=== PATIENT | male | born 1970 | race Caucasian/White ===

== ENCOUNTER 2017-03-18 15:17 | Observation (INO) | payer OTHER ==
[~2017-03-18] VITALS: Ht 182.9 cm; Wt 89.6 kg
[2017-03-18] VITALS (7 sets, daily range): BP systolic 125–155; BP diastolic 74–86
--- NOTE | ~2017-03-18 | EKG ---
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: MZOOK : 1970 Requested By: Stephanie Rios Order Number: [id number] MD: Jay Dowling Measurements Intervals [place] Rate: 75 P: 54 ME: 141 QRS: 29 QRSD: 92 T: 50 QT: 384 QTc: 429 Interpretive Statements Sinus rhythm Low voltage, precordial leads Abnormal R-wave progression, early transition Compared to ECG 11/02/2015 23:12:06 No significant change was found Electronically Signed On 03-19-2017 9:24:35 CDT by Jay Dowling [email or web address] <ELECTRONICALLY SIGNED> By: Jay Dowling MD, [facility] 03/19/17 0924 1551 1551 Jay Dowling MD, [facility] /EPI
--- NOTE | ~2017-03-18 | EXE ---
[facility] [employer] [place] [address] STRESS ECHOCARDIOGRAM Name: BUBBA ABURTO Room #: 206-P ADM IN M.R.#: [id number] Admission: 03/18/17 Attend Phys: Charleen Armstrong Discharge: Date of : 66 Date of Service: 03/19/17 0933 Report #: [id number] THIS REPORT FOR: //name// APPROVED REPORT Exam: Stress Echocardiogram Indication: Chest pain Patient Location: In-Patient Stress Nurse: Earnestine Yeager RN Room #: 206 Supervising Physician: Dr. Dowling Status: routine HR: 70 bpm Medical History Medical History: CABG, HLP Allergies: No known drug allergies Procedure The patient underwent an Exercise Stress Test using the Damion Protocol. Blood pressure, heart rate, and EKG were monitored. An Echocardiogram was performed by lawn care technician in four stages in quad fashion. At peak stress, four selected images were obtained and placed side by side with resting images for comparison. Stress Test Details Stress Test: Exercise stress testing was performed using a Damion protocol. HR Resting HR: 70 bpm Max Heart Rate (APMHR): 172 bpm Max HR Achieved: 144 bpm Target HR (85% APMHR): 146 bpm % of APMHR: 83 Recovery HR: 93 bpm HR response to stress: Normal HR response to stress BP Resting BP: 114/77 mmHg Max BP: 200/82 mmHg Recovery BP: 150/70 mmHg ECG Resting ECG: Sinus Rhythm Stress ECG: Sinus Rhythm ST Change: Normal [facility] [address] [place] [address] STRESS ECHOCARDIOGRAM Name: BUBBA ABURTO Room #: 206-P [facility] IN .R.#: [id number] Admission: 03/18/17 Attend Phys: Charleen Armstrong Discharge: Date of : 66 Date of Service: 03/19/17 0933 Report #: [id number] Maximum ST Deviation: 0 mm Arrhythmia: None Recovery ECG: Sinus Rhythm Recovery ST Change: Normal Recovery ST Deviation: 0 mm Recovery Arrhythmia: None Clinical Reason for Termination: Moderate fatigue, hip pain, dyspnea Exercise duration: 10 min 34 sec Exercise capacity: 13.40 METs Angina Score: None No complications. Stress ECG Conclusion Clinical: Non-ischemic ECG: Non-ischemic Nino Treadmill Score is 10.0 which is Low risk. Pre-Stress Echo The resting Echocardiogram showed abnormal left ventricular contractility with an estimated Ejection Fraction of about 50-55%. The resting Echocardiogram demonstrated wall motion abnormality in the basal inferior and inferoapical flores. Trace MR, mild TR. Post-Stress Echo The stress Echocardiogram showed abnormal left ventricular contractility with an estimated Ejection Fraction of about 65-70%. No new regional wall motion abnormalities Conclusion Clinical Response: Non-ischemic Exercise Capacity: Average Stress ECG Response: Non-ischemic Stress Echo Images: Non-ischemic Normal stress echocardiogram with maximal exercise stress. Resting EF 55%. Basal inferior and inferoapical hypokinesis Other Information Study Quality: Adequate/lung artifact <Conclusion> [facility] [address] [place] [address] STRESS ECHOCARDIOGRAM Name: BUBBA ABURTO GUIDO Room #: 206-P ADM IN M.R.#: [id number] Admission: 03/18/17 Attend Phys: Charleen Armstrong Discharge: Date of : 66 Date of Service: 03/19/17932 Report #: [id number] Normal stress echocardiogram with maximal exercise stress. Resting EF 55%. Basal inferior and inferoapical hypokinesis <ELECTRONICALLY SIGNED> By: Jay Dowling MD, FACC 03/19/17932 2 2 Jay Dowling MD, FACC /INF
--- NOTE | ~2017-03-18 | EKG ---
[address] [place] [address] ELECTROCARDIOGRAM REPORT Name: BUBBA ABURTO Room #: 206-P ADM IN M.R.#: [id number] Admission: 03/18/17 Attend Phys: Charleen Gregory Discharge: Date of : 66 Report #: [id number] THIS REPORT FOR: //name// [facility] Test Date: 2017-03-18 Test Time: 20:31:45 Pat Name: BUBBA ABURTO Department: Room: 206 P Gender: M Costumed Character: Klarissa WHEELER : 1970 Requested By: Brianda Bowling Order Number: [id number] MD: Jay Dowling Measurements Intervals [place] Rate: 65 P: 54 [place]: 154 QRS: 50 QRSD: 93 T: 59 QT: 379 QTc: 394 Interpretive Statements Sinus rhythm Baseline wander in lead(s) II Compared to ECG 11/02/2015 23:12:06 No significant changes Electronically Signed On 03-19-2017 9:26:04 CDT by Jay Dowling [email or web address] <ELECTRONICALLY SIGNED> By: Jay Dowling MD, [facility] 03/19/17 0926 30 30 Jay Dowling MD, [facility] /EPI
--- NOTE | ~2017-03-18 | HC ---
[facility] [address] [place] [address] [place] [address] CONSULTATION Name: BUBBA ABURTO Room #: 206-P ADM IN M.R.#: [id number] Admission: 03/18/17 Attend Phys: Charleen Gregory Discharge: Date of : 66 Report #: [id number] THIS REPORT FOR: //name// CC: VIN physician/PCP Charleen Gregory REASON FOR CONSULTATION: Chest pain. HISTORY OF PRESENT ILLNESS: The patient is a 46-year-old gentleman with HIV, dyslipidemia and coronary artery disease. He underwent multivessel bypass surgery in 2014 with a left internal mammary to the LAD, vein graft to the diagonal, ramus, marginal and posterolateral branches, and a separate vein graft to the acute marginal and posterior descending. The patient had been doing well, exercising, walking 5 miles a day without limitation. He was driving on his way to the oral surgeon yesterday when he developed midsternal chest tightness. This had a pulsating characteristic to it. There was no positional and pleuritic component. He called 911 and was brought to the emergency department where he was given aspirin, nitroglycerin, fentanyl without significant improvement in his discomfort. His EKG demonstrated no acute ST or T-wave changes. He was subsequently given enoxaparin, hydrocodone, Zofran, GI cocktail, and ultimately the pain dissipated. He has been pain free since. He denies heart failure symptoms including orthopnea, paroxysmal nocturnal dyspnea, or lower extremity edema. No history of near syncope or syncope. His ejection fraction is noted to be in the 40% to 45% range. ALLERGIES: No known drug allergies. MEDICATIONS: Pravastatin 40 mg daily, Tricor 1 a day, Triumeq 1 tablet daily, and an aspirin. PAST MEDICAL HISTORY: Medical records have been reviewed and include a history of cardiomyopathy, coronary artery bypass grafting, remote deep venous thrombosis, HIV, dyslipidemia, hypertension, cholecystectomy. SOCIAL HISTORY: Nonsmoker, exercises regularly. FAMILY HISTORY: Unremarkable for premature coronary disease. REVIEW OF SYSTEMS: All systems negative except as that noted above. PHYSICAL EXAMINATION: GENERAL: A pleasant gentleman in no distress. VITAL SIGNS: Blood pressure is 129/82, heart rate is 70 and regular. He is afebrile, 6 feet tall, 197 pounds. HEENT: There are neither xanthelasma, subcutaneous xanthomata, oral mucosal or digital cyanosis or kyphoscoliosis present. CHEST: Clear to auscultation and percussion. [facility] [address] [place] [address] CONSULTATION Name: BUBBA ABURTO Room #: 206-P [facility] IN M.R.#: [id number] Admission: 03/18/17 Attend Phys: Charleen Gregory Discharge: Date of : 66 Report #: [id number] CARDIAC: Regular rate and rhythm with normal S1, S2. No murmurs, gallops, or rubs. ABDOMEN: Soft and nontender. EXTREMITIES: Without cyanosis, clubbing or edema. Radial pulses are 2+. NEUROLOGIC: He is alert with a nonfocal exam. LABORATORY DATA: EKG; sinus rhythm, normal tracing. Sodium is 140, potassium 3.8, creatinine 0.9. White count 8.7, hemoglobin 16, hematocrit 45, platelet count 214. Serial troponin levels are 0. CT of the chest demonstrated no evidence of pulmonary embolism. IMPRESSION: 1. Chest pain with mixed features for ischemia. 2. Moderate, ischemic cardiomyopathy. 3. Hypertension. 4. Dyslipidemia. 5. Human immunodeficiency virus. RECOMMENDATIONS: 1. Stress testing. 2. Continued efforts towards aggressive risk factor modification. By: [id number] Jay Dowling MD, [facility] /nt
--- NOTE | ~2017-03-18 | EKG ---
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 : 1970 Requested By: Stephanie Rios Order Number: [id number] MD: Jay Dowling Measurements Intervals [place] Rate: 82 P: 67 [place]: 148 QRS: 25 QRSD: 88 T: 58 QT: 376 QTc: 439 Interpretive Statements Sinus rhythm Low voltage, precordial leads Abnormal R-wave progression, early transition Compared to ECG 11/02/2015 23:12:06 No significant change was found Electronically Signed On 03-19-2017 9:23:43 CDT by Jay Dowling [email or web address] <ELECTRONICALLY SIGNED> By: aJy Dowling MD, [facility] 03/19/17 0923 1514 1514 Jay Dowling MD, [facility] /EPI
[~2017-03-18 15:17] MED LIST: AMOXICILLIN 50500 M1 PO; APAP/CODEINE ELI5 M1 OR; ASPIR 8181 MG PO; BACTRIM DS TAB1 EACH PO; COLACE100 MG PO; COUMADIN 5 MG TA5 M1 PO; ENOXAPARIN100 MG/11 SUBQ; FLEXERIL PO; FLONASE 0.05%50 MCG NASAL; ISENTRESS25 MG PO; KEFLEX500 MG PO; LIPITOR 20 MG T20 M1 PO; LISINOPRIL10 MG PO; MEDROLDOSEPACK PO; MELATONIN3 MG PO; METOPROLOL TART25 MG PO; MIRALAX17 GM PO; NEURONTIN800 MG PO; NORCO 5-325 TA1 EACH PO; PACERONE 200 M200 M1 PO; PERCOCET 5-3251 EACH PO; PRILOSEC OTC20 MG PO; SUSTIVA50 MG PO; TRICOR145 MG PO; TRIUMEQ TABLET1 EACH PO; TYLENOL325 MG PO; VALIUM5 MG PO; ZOFRAN4 MG PO; ZYRTEC10 MG PO; [UNRECOGNIZED DRUG - OTHER] PO
[2017-03-18 15:55] LABS: HEMATOCRIT 45.6 % (42.0-52.0); HEMOGLOBIN 16.3 gm/dL (14.0-18.0); MCH 34.4 pg (26.0-34.0); MCHC 35.7 g/dL (28.0-37.0); MCV 96.4 fL (80.0-100.0); PLATELET COUNT 214 thou/uL (150-400); RBC 4.73 mil/uL (4.50-6.00); RDW 13.7 % (10.5-14.5); WBC 8.7 thou/uL (4.0-11.0)
[2017-03-18 15:56] LABS: MANUAL DIFF YES
[2017-03-18] MEDS ORDERED: FISH OIL 1,001000 M2 PO (16:03)
[2017-03-18 16:04] LABS: APTT 22.3 Seconds (24.5-32.8); PROTIME 9.9 Seconds (9.3-11.4)
[2017-03-18 16:05] LABS: ANION GAP 8 mmol/L (7-16); BUN 17 mg/dL (7-18); CHLORIDE 105 mmol/L (98-107); CO2 26 mmol/L (21-32); GLUCOSE 116 mg/dL (74-106); POTASSIUM 4.3 mmol/L (3.5-5.1); SODIUM 139 mmol/L (136-145)
[2017-03-18 16:14] LABS: TROPONIN-I < 0.04 ng/mL (<0.04-0.07)
[2017-03-18 16:23] LABS: ABSOLUTE NEUTROPHILS 4.4 thou/uL (1.4-8.2); TOTAL CELL COUNT 100
[2017-03-18] MEDS ORDERED: PRAVACHOL40 MG PO (18:27)
[2017-03-19 03:24] LABS: ALBUMIN 3.2 g/dL (3.4-5.0); CALCIUM 8.2 mg/dL (8.5-10.1); CREATININE 0.9 mg/dL (0.7-1.3); PHOSPHORUS 3.9 mg/dL (2.5-4.9); POTASSIUM 3.8 mmol/L (3.5-5.1)
[2017-03-19 04:13] VITALS: BP 114/77
[2017-03-19 07:25] VITALS: BP 120/81
[2017-03-19 10:58] VITALS: BP 120/81
[2017-03-19 11:10] VITALS: BP 127/86
== END 2017-03-19 11:39 | disposition home or self-care (01) ==
LOC: ER 15:17 → EROBS 16:35 → 2N 16:35
PROVIDERS: Emergency Medicine; Hospitalist
DX: R07.89 Other chest pain (principal); I25.10 Atherosclerotic heart disease of native coronary artery without angina pectoris; E78.5 Hyperlipidemia, unspecified; I25.5 Ischemic cardiomyopathy; K21.9 Gastro-esophageal reflux disease without esophagitis; I10 Essential (primary) hypertension; L02.01 Cutaneous abscess of face; I25.2 Old myocardial infarction; Z95.1 Presence of aortocoronary bypass graft; Z86.718 Personal history of other venous thrombosis and embolism; Z88.5 Allergy status to narcotic agent; Z87.891 Personal history of nicotine dependence; Z90.49 Acquired absence of other specified parts of digestive tract
CPT/HCPCS: 10081

== ENCOUNTER 2019-02-17 11:10 | Inpatient (IN) | payer OTHER ==
[~2019-02-17] VITALS: Ht 182.9 cm; Wt 73.8 kg
[~2019-02-17 11:10] MED LIST changes: +FISH OIL 1,001000 M2 PO; +PRAVACHOL40 MG PO
[2019-02-17 11:15] VITALS: BP 117/79
[2019-02-17 13:42] LABS: ABSOLUTE NEUTROPHILS 13.6 thou/uL (1.4-8.2); BASOPHILS 0.3 % (0.0-2.0); EOSINOPHILS 1.5 % (0.0-3.0); HEMATOCRIT 49.1 % (42.0-52.0); HEMOGLOBIN 16.7 gm/dL (14.0-18.0); MCH 31.5 pg (26.0-34.0); MCHC 34.1 g/dL (28.0-37.0); MCV 92.4 fL (80.0-100.0); MONOCYTES 8.4 % (1.0-8.0); PLATELET COUNT 209 thou/uL (150-400); POLYS 78.8 % (36.0-66.0); RBC 5.31 mil/uL (4.50-6.00); RDW 13.4 % (10.5-14.5); WBC 17.3 thou/uL (4.0-11.0)
[2019-02-17 13:49] LABS: CALCIUM 9.2 mg/dL (8.5-10.1); CREATININE 1.1 mg/dL (0.7-1.3); POTASSIUM 3.6 mmol/L (3.5-5.1)
[2019-02-17 13:56] LABS: ALBUMIN 2.9 g/dL (3.4-5.0); APTT 27.3 Seconds (24.5-32.8); PROTIME 10.7 Seconds (9.3-11.4); TOTAL BILIRUBIN 0.9 mg/dL (<0.1-1.0); TOTAL PROTEIN 9.2 g/dL (6.4-8.2)
[2019-02-17] MEDS ORDERED: TOPROL XL25 MG PO (14:53)
[2019-02-17] MEDS ORDERED: BIKTARVY 50-201 EACH PO (14:53)
[2019-02-17] MEDS ORDERED: LIPITOR80 MG PO (14:54)
[2019-02-17] MEDS ORDERED: ZOLOFT50 MG PO (14:55)
[2019-02-17 16:20] VITALS: BP 108/56
--- NOTE | 2019-02-17 18:13 | NUR ---
PT. ARRIVED AT 1700 THIS EVENING. HE IS A WHITE MALE 48 Y/O. HE IS HER FOR CELLULITIS/ABXCESS TO TAILBONE AREA THAT IS REDISH PURPLEISH IN COLOR. IT HAS SOME EDEMA TO THE AREA AND HE C/O IT IS TENDER. HE HAS HIS MEDICATIONS WITH HIM IN PILL BOTTLES. HE HAS A HISTORY OF HIV. HIS MEDICATIONS ARE CORRECT IN THE SYSTEM. HE WEIGHED IN AT 166.1 LBS. HE DOES NOT HAVE DIABETES BUT DUE TO THE INFECTION THE DR. IN ER WANTS ACCUCHECKS AC AND HS FOR THE 1ST 24 HOURS. HIS BLOOD SUGAR IN ER WAS 127. HE IS ON A REGULAR DIET. HIS LABS WERE TAKEN AND SENT FROM ER. HE HAS A 20 GUAGE IV IN HIS RIGHT HAND. VSS. HE HAD A 5 WAY BYPASS ABOUT [address] ZHU WAS NOTIFIED OF HIS ARRIVAL. HE DOES NOT CURRENTLY HAVE A TEMPERATURE. HE IS ON A REGULAR DIET. SCDS APPLIED TO HIS LOWER LEGS. HE HAS AN IV RUNNING AT 125 HR.
[2019-02-17 19:43] VITALS: BP 98/62
--- NOTE | 2019-02-18 00:48 | NUR ---
ADMISSION ASSESSMENT COMPLETED. PT ARRIVED TO UNIT AT AROUND 1730 HRS. PT IS PLEASANT AND COOPERATIVE.C/O L GLUTEAL PAIN-WELL MANAGED WITH ORAL AND IV PAIN MEDS. AFEBRILE.UP AD MARY JO IN ROOM.WILL CONTINUE WITH POC TILL EOS.
[2019-02-18 03:40] VITALS: BP 94/57
[2019-02-18 07:29] VITALS: BP 111/62
--- NOTE | 2019-02-18 11:57 | NUR ---
Received awake on bed. Due medications given as prescribed. On room air. No chest pain, nausea and vomiting noted. Vital signs stable. With IV at R hand- IVF at 125cc/hr infusing well. On blood sugar monitoring- taken and recorded accordingly, with SS prescribed PRN. A+Ox4. Pt with L Gluteal wound- to continue antibiotics as per doctor- pt able to turn himself on the bed independently, Up ad ethan. Complains of pain- due PRN medications given as prescribed- with partial pain relief, repositioning and medications help a little bit as per pt. Pt seen by Dr Gregory and Dr Lazaro today. For repeat CT scan on wednesday.
[2019-02-18 16:03] VITALS: BP 112/65
[2019-02-18 19:24] VITALS: BP 107/59
--- NOTE | 2019-02-18 22:34 | NUR ---
RECEIVED PT AT 1900. IN ROOM, IN BED. VERBALIZING FRUSTRATION THAT HE DOESN'T FEEL HE IS GETTING THE ATTENTION THAT HIS CONDITION REQUIRES. ASKING TO SEE MD IMMEDIATELY. CONTACTED ASSIGNMENT CLERK, AND SHE SAW PT. GAVE PT PAIN MEDS FOR C/O PAIN ON BOTTOM. MARKED WOUND AREA WITH DARK MARKER, PER ASSIGNMENT CLERK SUGGESTION. PT HAS CALMED AND WAS APPOLOGETIC ABOUT HIS BEHAVIOR.
[2019-02-18 23:09] VITALS: BP 107/59
--- NOTE | 2019-02-19 03:09 | NUR ---
AFTER SEEING COMMISSIONS MANAGER AND STAFFING EXECUTIVE AND RECEIVING PAIN MEDS, PT HAS BEEN RESTING QUIETLT. CONTINUES TO RECEIVE ANTIBIOTICS FOR WOUND INFECTION. SLEPT INTERMITTANTLY THROUGH THE NIGHT WITH NO FURTHER COMPLAINTS.
[2019-02-19 05:48] VITALS: BP 100/54
[2019-02-19 05:51] LABS: HEMATOCRIT 42.3 % (42.0-52.0); MCH 31.5 pg (26.0-34.0); MCV 92.5 fL (80.0-100.0); RBC 4.57 mil/uL (4.50-6.00); RDW 13.1 % (10.5-14.5); WBC 11.6 thou/uL (4.0-11.0)
[2019-02-19 05:54] LABS: HEMOGLOBIN 14.4 gm/dL (14.0-18.0)
--- NOTE | 2019-02-19 07:19 | HC ---
[facility] [place] [address] CONSULTATION Name: BUBBA ABURTO Room #: 454-P ADM IN M.R.#: [id number] Admission: 02/17/19 ������������������ Attend Phys: Charleen Gregory Discharge: ������������������ Date of : 66 Report #: [id number] THIS REPORT FOR: //name// CC: FAM unknown Charleen Gregory DATE OF SERVICE: 02/18/2019 ATTENDING PHYSICIAN: Charleen Gregory MD REASON FOR CONSULTATION: Left gluteal abscess. HISTORY OF PRESENT ILLNESS: A 48-year-old white man is admitted through the Emergency Room with history of painful swelling, left gluteal region, associated with some chills, but no true fevers. The patient tells me it is going on for maybe 2-3 days. He thought it was an ingrown hair. PAST MEDICAL HISTORY: HIV infection, on Biktarvy 1 daily. He does not have recollection of his CD4 lymphocyte count and viral load is undetectable. Also positive for gastroesophageal reflux disease, cholecystectomy. Coronary artery bypass grafting. Significant coronary artery disease. DRUG ALLERGIES: None listed. MEDICATIONS: The patient is currently on treatment with aspirin 81 mg p.o. daily, vancomycin 1250 mg IV every 12 hours, Zosyn 3.375 grams IV every 8 hours, Biktarvy 1 tablet daily (combination of bictegravir 50 mg, emtricitabine 200 mg and tenofovir alafenamide 25 mg). He is also on sertraline 50 mg at bedtime, metoprolol 25 mg at bedtime, atorvastatin 80 mg at bedtime, enoxaparin 40 mg subcutaneous daily, insulin lispro per sliding scale, p.r.n. glucose, glucagon, p.r.n. morphine sulfate. P.r.n. acetaminophen, p.r.n. hydrocodone, polyethylene glycol 17 grams p.o. daily, p.r.n. sublingual nitroglycerin, p.r.n. IV ondansetron, half normal saline at 1000 mL every 8 hours. FAMILY HISTORY: See H and P, old records. REVIEW OF SYSTEMS: As above and see H and P. PHYSICAL EXAMINATION: GENERAL: Well-developed, chronically ill-appearing man. VITAL SIGNS: Temperature 97.6, pulse 54, respirations 16, BP 111/62, patient has low blood pressure as low as 94/57. HEENMT: Head normocephalic, atraumatic. Pupils reactive. Mouth: No thrush or hairy leukoplakia. . Some carious teeth present, missing teeth. NECK: Supple, no thyromegaly. LYMPHATIC: Lymph nodes are negative. [address] [address] CONSULTATION Name: BUBBA ABURTO GUIDO Room #: 454-P ADM IN M.R.#: [id number] Admission: 02/17/19 ������������������ Attend Phys: Charleen Gregory Discharge: ������������������ Date of : 66 Report #: [id number] LUNGS: Clear. HEART: S1, S2. No gallop or murmur. ABDOMEN: Soft, no masses or megaly. BACK: Left gluteal area shows an area of induration, very likely this is a phlegmon and soon to be an abscess. May need surgical incision and drainage. GENITAL AND RECTAL: Deferred. EXTREMITIES: No clubbing, cyanosis. NEUROLOGIC: Grossly within normal limits. LABORATORY DATA: Revealed the following abnormals: BUN 26, glucose 127, total protein 9.2 g/dL, albumin 2.9 g/dL. WBC 17,300; hemoglobin 16.7 g/dL; platelets 209,000. MICROBIOLOGY DATA: Blood cultures were obtained, they are negative so far. IMAGING: CT scan of the pelvis revealed edema of the left gluteal region, measuring 14 cm in length. No obvious underlying fluid collection. ASSESSMENT: 1. Left gluteal phlegmon. 2. Human immunodeficiency virus infection. 3. Leukocytosis secondary to above. 4. Human immunodeficiency virus infection, on Biktarvy. 5. Hypoalbuminemia and elevation of total protein, possibly secondary to human immunodeficiency infection. SUGGESTIONS: Recommend continued coverage with intravenous vancomycin and Zosyn as well as oral Biktarvy one tablet daily. Need surgical consultation. We will obtain ESR and CRP as well. Dr. Gregory, thank you for requesting my suggestions. ��������������������������������������������� <ELECTRONICALLY SIGNED> ���������������������������������������� By: Adrian Lazaro MD ��������������������������������������������� 02/19/19 0719 0738 1244 Adrian Lazaro MD /nt
[2019-02-19 09:00] VITALS: BP 111/62
[2019-02-19 16:51] LABS: CALCIUM 9.1 mg/dL (8.5-10.1); CREATININE 1.1 mg/dL (0.7-1.3); POTASSIUM 3.5 mmol/L (3.5-5.1)
--- NOTE | 2019-02-19 18:13 | NUR ---
Assumed pt care this am, pt was very frustrated and angry with the care that was delivered from the previous days / shift. Seen by Dr. Herzog, advised to consult surgery. Dr. De Oliveira advised to keep pt NPO and surgery will be done this afternoon. IV change since this was infiltrated and placed a new 20g on the left fore arm. Pt only complained of pain once morphine given with partial relief, NPO was maintained. Dr. De Oliveira came to see the pt, procedure to be done yane am. Consent signed, informed the pt he will be NPO post midnight. POC followed, pain medication given. Pt is up at tehan and took a complete shower on his own. Pt have verbalized several times how disappointed he is with the quality of care he has been given from the time of admission in the ER to the floor. Pt has mentioned he will get a orchestra leader to deal with this situation, informed charge nurse. VS have been stable, no other complaints have been verbalized by the pt as of this writing.
[2019-02-19 21:04] VITALS: BP 100/46
[2019-02-20 04:04] VITALS: BP 93/39
[2019-02-20 04:23] VITALS: BP 91/45
--- NOTE | 2019-02-20 06:30 | NUR ---
Assumed care at 1845. Pt resting in bed. AOX4. VSS. NPO since midnight for I&D in the morning. Consent signed and is in chart. Gave pain medication once. Left gluteal absess still draining. No identified needs at the moment. Will continue to monitor.
[2019-02-20 09:31] VITALS: BP 112/68
--- NOTE | 2019-02-20 10:30 | NUR ---
Nutrition: pt admitted with left draining davi-rectal abscess. S/P I&D this am. PMH: HTN, HIV, CABG. Eating 100% of meals on regular diet. Stable weights. Encouraged adequate protein foods for healing. Pt agreeable to ensure max once daily. Aware of menu, able to order meals. Low nutrition risk.
[2019-02-20 16:07] VITALS: BP 114/66
--- NOTE | 2019-02-20 16:54 | NUR ---
INITIAL ASSESSMENT: SW reviewed chart and spoke with attending physician. Pt was admitted from home due to left davi-rectal abscess. Pt had I&D earlier today and is on IV abx. SW met with pt at bedside. Introduced role of SW. Pt is alert/orientated x 4. Pt reports he lives at home. Prior to admission, pt was independent with ADLs. No use of DME. Pt states his PCP is at the [facility] (Dr. Ivy). Plan is for pt to return home when medically stable. SW is following to assist as needed with discharge planning.
--- NOTE | 2019-02-20 17:52 | NUR ---
Assumed pt care this am, pt was taken to OR prior to shift change. Pt came back from post op, vs were stable. Surgical site (left gluteal) has a packed, drin and intact dressing. Pt tolerated his diet well, pain was managed with medication partial relief. IV abx and oral medication given. Pt is up at ethan and able to use the toilet. POC being followed, no signs of distress have been noted not further complaints from the pt.
[2019-02-20 19:49] VITALS: BP 118/71
[2019-02-21 03:54] VITALS: BP 123/73
--- NOTE | 2019-02-21 05:14 | NUR ---
Pt. rested quietly at intervals during the night when checked on during frequent rounds. He has been medicated for c/o left sided buttocks pain (see emar) with some relief noted. Dressing to left side of buttocks is intact with the pull up panties. No c/o nausea and tolerating diet.
--- NOTE | 2019-02-21 06:39 | O ---
[facility] [place] [address] [place] [address] OPERATIVE REPORT Name: BUBBA ABURTO Room #: 454-P ADM IN M.R.#: [id number] Admission: 02/17/19 ������������������ Attend Phys: Charleen Gregory Discharge: ������������������ Date of : 66 Report #: [id number] THIS REPORT FOR: //name// CC: FAM unknown Charleen Gregory DATE OF SERVICE: 02/20/2019 PREOPERATIVE DIAGNOSIS: Left perirectal abscess. POSTOPERATIVE DIAGNOSIS: Left perirectal abscess. OPERATION: Incision and drainage of left perirectal abscess. SURGEON: Kaushal De Oliveira MD ANESTHESIA: General. ESTIMATED BLOOD LOSS: Minimal. SPECIMENS: Abscess fluid for culture. DESCRIPTION OF PROCEDURE: After informed consent was obtained, the patient was brought to the operating room and placed supine. SCDs were placed and working, preoperative antibiotics were administered, general anesthesia was induced. The area was prepped and draped in the usual sterile fashion. The patient was placed in the right lateral decubitus position with all bony prominences protected. The area was then prepped and draped with Betadine. Cautery dissection was made to excise a cap of the skin measuring approximately 2 x 1 cm. Pus was expressed. It was cultured. Loculations were broken up bluntly with a clamp. Area was then copiously irrigated with normal saline. It was packed with sterile gauze. Sterile dressings were applied. COMPLICATIONS: None. DISPOSITION: The patient was taken to recovery in satisfactory condition. ��������������������������������������������� <ELECTRONICALLY SIGNED> ���������������������������������������� By: Kaushal De Oliveira MD ��������������������������������������������� 02/21/19 0639 0744 0837 Kaushal De Oliveira MD /nt
[2019-02-21 07:28] VITALS: BP 117/72
[2019-02-21] MEDS ORDERED: AUGMENTIN 875-1 EACH PO (09:49)
[2019-02-21] MEDS ORDERED: TRAMADOL 50 MG50 MG PO (09:50)
--- NOTE | 2019-02-21 13:50 | NUR ---
SW reviewed chart and spoke with attending physician. Awaiting culture results at this time, to determine abx at time of discharge. Plan is for pt to discharge home when medically stable. SW is following to assist as needed with discharge planning.
--- NOTE | 2019-02-21 15:22 | NUR ---
PT STABLE THROUGHOUT SHIFT. CHANGED DRESSING. PT C/O PAIN THROUGHOUT SHIFT, GAVE PAIN MEDS ACCORDINGLY. PT RESTING COMFORTABLY, WILL CONTINUE TO MONITOR.
[2019-02-21 17:20] VITALS: BP 118/60
[2019-02-21 19:16] VITALS: BP 99/55
[2019-02-22 04:16] VITALS: BP 100/56
[2019-02-22 07:34] VITALS: BP 120/68
--- NOTE | 2019-02-22 08:35 | NUR ---
PROGRESS PT UPSET AND IN PAIN STATED DRESSING TAPE TOO TIGHT 2 MG MORPHINE GIVEN AND DRESSING CHANGED PT REPORTED RELIEF. IV ALSO HURTING AND REPLACED OLD SITE SLIGHTLY RED. UP AD MARY JO VOIDING QS PT HAD A BM THIS EVENING. TOLERATING DIET ANTIBIOTICS CONTINUE
[2019-02-22] MEDS ORDERED: ZYVOX600 MG PO (09:30)
[2019-02-22 12:04] VITALS: BP 120/68
--- NOTE | 2019-02-22 14:33 | NUR ---
DISCHARGE NOTE: SW reviewed chart and spoke with nursing and attending physician. Pt is medically stable for discharge home today. Pt will be discharged home on PO Zyvox for 10 days. Pt will follow up with surgery as an outpatient. Pt discharged home earlier this afternoon. No additional SW needs identified at this time, but is available to assist should needs arise.
--- NOTE | 2019-02-22 20:16 | NUR ---
PT DISCHARGED HOME. PT A&OX4, VSS, DENIES PAIN. PATIENT STABLE, RESTED IN BED, IV ABX GIVEN ORDERED. DRESSING CHANGED TODAY AND DISCHARGE PHOTO PLACED IN CHART. IV REMOVED, ALL BELONGINGS WITH PATIENT. PT VERBALIZED UNDERSTANDING OF PRESCRIPTIONS AND DISCHARGE INSTRUCTIONS.
== END 2019-02-22 14:16 | disposition home or self-care (01) | DRG 580 ==
LOC: ER 11:10 → EROBS 15:14 → 4W 15:14
PROVIDERS: Physician Assistant; ADMIT Hospitalist
PROC: 0D9Q0ZZ Drainage of Anus, Open Approach (ICD-10-PCS; principal; 2019-02-20)
DX: L03.317 Cellulitis of buttock (principal); K61.1 Rectal abscess; L02.31 Cutaneous abscess of buttock; G62.9 Polyneuropathy, unspecified; K21.9 Gastro-esophageal reflux disease without esophagitis; E88.09 Other disorders of plasma-protein metabolism, not elsewhere classified; I25.2 Old myocardial infarction; Z95.1 Presence of aortocoronary bypass graft; Z90.49 Acquired absence of other specified parts of digestive tract; Z79.82 Long term (current) use of aspirin; Z79.899 Other long term (current) drug therapy; Z98.61 Coronary angioplasty status
CPT/HCPCS: 10040; 10045; 50010; 50101; 50386; 62110; 62900; 70005

== ENCOUNTER 2019-03-23 13:49 | Emergency (ER) | payer OTHER ==
[~2019-03-23] VITALS: Ht 182.9 cm; Wt 77.1 kg
[~2019-03-23 13:49] MED LIST changes: +AUGMENTIN 875-1 EACH PO; +BIKTARVY 50-201 EACH PO; +LIPITOR80 MG PO; +TOPROL XL25 MG PO; +TRAMADOL 50 MG50 MG PO; +ZOLOFT50 MG PO; +ZYVOX600 MG PO
[2019-03-23] MEDS ORDERED: AUGMENTIN 875-1 EACH PO (17:12)
[2019-03-23] MEDS ORDERED: FLAGYL500 M1 PO (17:12)
[2019-03-23] MEDS ORDERED: TRAMADOL 50 MG50 MG PO (17:13)
[2019-03-23 17:45] VITALS: BP 95/56
== END 2019-03-23 17:46 | disposition home or self-care (01) ==
LOC: ER 13:49
PROC: 0J9B0ZZ Drainage of Perineum Subcutaneous Tissue and Fascia, Open Approach (ICD-10-PCS; principal; 2019-03-23)
DX: L02.215 Cutaneous abscess of perineum (principal); B20 Human immunodeficiency virus [HIV] disease; G62.9 Polyneuropathy, unspecified; I25.2 Old myocardial infarction; K21.9 Gastro-esophageal reflux disease without esophagitis; Z90.49 Acquired absence of other specified parts of digestive tract

== ENCOUNTER 2019-03-25 10:40 | Emergency (ER) | payer OTHER ==
[~2019-03-25] VITALS: Ht 182.9 cm; Wt 77.1 kg
[~2019-03-25 10:40] MED LIST changes: +FLAGYL500 M1 PO
[2019-03-25 10:41] VITALS: BP 116/73
== END 2019-03-25 11:43 | disposition home or self-care (01) ==
LOC: ER 10:40
DX: L02.215 Cutaneous abscess of perineum (principal); B20 Human immunodeficiency virus [HIV] disease; K21.9 Gastro-esophageal reflux disease without esophagitis; G62.9 Polyneuropathy, unspecified; Z90.49 Acquired absence of other specified parts of digestive tract

== ENCOUNTER 2019-05-15 17:22 | Inpatient (IN) | payer OTHER ==
[~2019-05-15] VITALS: Ht 182.9 cm; Wt 70.6 kg
[2019-05-15 17:29] VITALS: BP 128/76
[2019-05-15 18:38] LABS: HEMOGLOBIN 14.5 gm/dL (14.0-18.0); MCH 30.7 pg (26.0-34.0); MCHC 33.8 g/dL (28.0-37.0); MCV 90.9 fL (80.0-100.0); RBC 4.73 mil/uL (4.50-6.00); RDW 13.8 % (10.5-14.5); WBC 7.6 thou/uL (4.0-11.0)
[2019-05-15 18:43] LABS: CALCIUM 8.5 mg/dL (8.5-10.1); POTASSIUM 3.7 mmol/L (3.5-5.1)
[2019-05-15 18:49] LABS: ALBUMIN 2.9 g/dL (3.4-5.0); TOTAL BILIRUBIN 0.4 mg/dL (<0.1-1.0); TOTAL PROTEIN 8.5 g/dL (6.4-8.2)
[2019-05-15 19:16] LABS: URINE BILIRUBIN NEGATIVE (Negative); URINE BLOOD TRACE (Negative); URINE CLARITY CLEAR; URINE COLOR YELLOW; URINE GLUCOSE-RANDOM* NEGATIVE (Negative); URINE KETONES NEGATIVE (Negative); URINE LEUKOCYTES-REFLEX NEGATIVE (Negative); URINE NITRITE-REFLEX NEGATIVE (Negative); URINE PROTEIN (DIPSTICK) 1+ (Negative); URINE SPECIFIC GRAVITY >= 1.030 (1.005-1.035)
[2019-05-15 19:25] LABS: BACTERIA-REFLEX None Seen /HPF (None Seen); CRYSTALS None Seen /LPF (None Seen); HYALINE CASTS 0-3 Few /LPF (None Seen); MUCUS >6 Heavy strn/LPF (None Seen); SQUAMOUS 0-3 Few /LPF (0-3); URINE RBC 0-2 Rare /HPF (0-2); URINE WBC-REFLEX 0-5 Rare /HPF (0-5)
[2019-05-15 20:28] VITALS: BP 120/71
[2019-05-15 20:31] VITALS: BP 120/71
[2019-05-15 21:35] VITALS: BP 113/77
--- NOTE | 2019-05-16 02:38 | NUR ---
Assumed arrived on unit at 2135 accompanied by nursing staff. A/OX4. Up ad ethan,fall safety education reinforced and pt agrees to call as needed. VSS. Admission paperwork signed. Medicated for generalized pain with [place] with partial relief reported. Pt has a few open lesions on different body parts;pictures taken. Pt resting with no distress noted at this time will continue to monitor pt.
[2019-05-16 03:45] VITALS: BP 118/70
[2019-05-16 05:36] LABS: HEMATOCRIT 40.1 % (42.0-52.0); HEMOGLOBIN 13.6 gm/dL (14.0-18.0); MCH 30.6 pg (26.0-34.0); RBC 4.45 mil/uL (4.50-6.00); RDW 13.8 % (10.5-14.5); WBC 6.6 thou/uL (4.0-11.0)
[2019-05-16 05:58] LABS: CALCIUM 8.1 mg/dL (8.5-10.1); POTASSIUM 3.9 mmol/L (3.5-5.1)
[2019-05-16 07:59] VITALS: BP 113/67
--- NOTE | 2019-05-16 14:09 | NUR ---
INITIAL ASSESSMENT: SW reviewed chart and spoke with nursing and attending physician. Pt was admitted from home due to left gluteal cellulitis. Pt is s/p I&D of gluteal abscess in February of 2019. Pt with hx of HIV and has been off of his medications for about a month. ID and wound care consulted. SW met with pt at bedside. Introduced role of SW. Pt is alert/orientated x 4. Pt reports he lives at home alone. Prior to admission, pt was independent with ADLs. No use of DME or hx of HH or SNF/Rehab placement. 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 Pt does not have health insurance. [employer] to meet with pt to determine if he qualifies for [place]-Medicaid or financial assistance. Pt states that he goes to [facility] clinic and sees Dr. Ivy. Pt states that he spoke with someone in the clinic to restart his HIV meds. Pt dowling been on Biktarvy daily in the past. Pt states that he should be able to start having meds filled when discharged. Pt denies any additional referrals/services at this time. Discharge plan is for pt to discharge home when medically stable. SW is following to assist as needed with discharge planning.
[2019-05-16 16:02] VITALS: BP 122/67
--- NOTE | 2019-05-16 18:04 | NUR ---
PT A&OX4, VSS, C/O GENERALIZED PAIN. DOCTOR IN TO DRAIN ABSCESS LEFT BUTTOCK. PAIN MANAGED WITH MEDICATION. ANTIBIOTIC CREAM APPLIED TO OTHER WOUND SITES PER ORDER. PATIENT RESTED IN BED THROUGHOUT DAY. NO SIGNS OF DISTRESS. DRESSING TO LEFT BUTTOCK REMAINS C/D/I. WILL CONTINUE TO MONITOR.
[2019-05-16 19:20] VITALS: BP 125/65
[2019-05-17 04:45] VITALS: BP 110/66
--- NOTE | 2019-05-17 05:05 | NUR ---
Assumed pt care at 1900.Pt is A/OX4,VSS. Up ad ethan w/o robems. C/o pain moreso on open lesions allover body 02/22 medicated with Valatie with partial relief reported. Voiding adequately, prune juice given at HS no BM yet. Wound care done to open areas with Mupuricon as ordered. Pt to have daily baths with Hibiclens,will pass on to day shift nurse. Resting quietly at this timer no distress noted,will continue to monitor pt.
[2019-05-17 07:45] VITALS: BP 116/63
[2019-05-17] MEDS ORDERED: HYDROCODON-ACE1 EAC7 PO (09:54)
[2019-05-17] MEDS ORDERED: MUPIROCIN22 GM TOP (09:54)
[2019-05-17] MEDS ORDERED: LINEZOLID600 MG PO (09:54)
[2019-05-17 12:22] VITALS: BP 116/63
--- NOTE | 2019-05-17 13:50 | NUR ---
ASSUMED CARE OF PATIENT 0700. A/OX4, PAIN ONLY WITH DRESSING CHANGE. NO PAIN MED GIVEN THIS SHIFT. DRANK ALL SUPPLEMENTS PER ORDER. MEDICATIONS FILLED AND GIVEN TO PATIENT FOR DISCHARGE. HYDROCODINE SCRIPT LEFT IN OUTPATIENT PHARMACY PER PATIENT REQUESTS. DRESSING CHANGED BY WOUND NURSE AND PICTURE TAKEN. PATIENT SIGNED DC PAPERS. LEFT WITH RIDE OF UNRELATED ADULT.
--- NOTE | 2019-05-23 17:56 | HC ---
[facility] [place] [address] CONSULTATION Name: BUBBA ABURTO Room #: 463-P [facility] IN M.R.#: [id number] Admission: 05/15/19 Attend Phys: Kristopher Sandoval MD Discharge: 05/17/19 Date of : 66 Report #: [id number] THIS REPORT FOR: //name// CC: FAM unknown Kristopher Sandoval DATE OF SERVICE: 05/16/2019 CHIEF COMPLAINT: Gluteal abscess. HISTORY OF PRESENT ILLNESS: This is a 49-year-old male patient who was admitted to the hospital with left gluteal cellulitis and abscess. It was apparently incised and drained in February of 2019, but this has been persistent or recurrent. It has gotten larger. He was admitted to the hospital. He has had an incision and drainage performed at bedside by Dr. Bubba Alvarez today. The patient states he is having some pain, but it does feel better since the I and D procedure. PAST MEDICAL HISTORY: Positive for coronary artery disease, status post CABG, gastroesophageal reflux, and HIV. ALLERGIES: None. MEDICATIONS: Include aspirin, metoprolol, Biktarvy, Lipitor, Zoloft. SOCIAL HISTORY: The patient is a former smoker. No alcohol use. FAMILY HISTORY: Noncontributory. REVIEW OF SYSTEMS: CONSTITUTIONAL: The patient denies fever, chills, or weight loss. NEUROLOGICAL: The patient denies focal weakness, numbness, or tingling. EYES: The patient denies visual changes, redness, or drainage. ENT: The patient denies earache, nasal drainage, or sore throat. CARDIOVASCULAR: The patient denies chest pain or palpitations or diaphoresis. PULMONARY: The patient denies cough or shortness of breath. GASTROINTESTINAL: The patient denies nausea, vomiting, diarrhea, or abdominal pain. ORTHOPEDIC: The patient denies pain or swelling in the extremities. Does have a gluteal abscess, now status post incision and drainage. Other systems in a 14-point review of systems are negative. PHYSICAL EXAMINATION: VITAL SIGNS: At this time include temperature 36.9, pulse 69, respiratory rate 17, blood pressure 122/67. GENERAL: This is a well-developed, well-nourished male patient who appears to [address] [address] CONSULTATION Name: BUBBA ABURTO Room #: 463-P [facility] IN M.R.#: [id number] Admission: 05/15/19 Attend Phys: Kristopher Sandoval MD Discharge: 05/17/19 Date of : 66 Report #: [id number] be in minimal distress. HEENT: Head normocephalic. Nose and throat clear. NECK: Supple. ABDOMEN: Soft. Bowel sounds present. EXTREMITIES: Examination of the gluteal region demonstrates a surgical dressing in place. I have left them in place as they were just placed approximately one hour ago. There is no bleeding or drainage through the dressing at this time. NEUROLOGIC: The patient is alert and oriented and appropriate. LABORATORY DATA: White blood cell count 6.6, hemoglobin 13.6. Sodium 139, potassium 3.9, chloride 107, CO2 27, BUN 13, creatinine 1.0. Albumin is slightly low at 2.9. CLINICAL IMPRESSION: 1. Left gluteal abscess. 2. Human immunodeficiency virus infection. 3. History of coronary artery disease. RECOMMENDATIONS: At this point in time, the patient is on empiric antibiotic therapy. We will take his surgical dressings down and the dressing recommendation will be made tomorrow during dressing change. We will recommend empiric antibiotic therapy, pending cultures. Continue with current medication regimen and ongoing nutritional support to maximize wound healing. I appreciate being asked to see him in consultation. <ELECTRONICALLY SIGNED> By: Tod Adams MD 05/23/19 [id number] Tod Adams MD /nt
--- NOTE | 2019-06-15 19:01 | HC ---
[facility] [place] [address] CONSULTATION Name: BUBBA ABURTO Room #: 463-P [facility] IN M.R.#: [id number] Admission: 05/15/19 Attend Phys: Kristopher Sandoval MD Discharge: 05/17/19 Date of : 66 Report #: [id number] THIS REPORT FOR: //name// CC: FAM unknown Kristopher Sandoval DATE OF SERVICE: 05/16/2019 INFECTIOUS DISEASE CONSULTATION REASON FOR CONSULTATION: Evaluate multiple skin abscesses in the setting of HIV infection. HISTORY OF PRESENT ILLNESS: The patient is a 49-year-old known long history of HIV. Most recently, he has been off his antiretroviral therapy for about a month due to insurance issues and inability for him to pay for the medication. He does receive his care at [facility]. 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 Most recently he was hospitalized in February of this year for several buttock lesions that required incision and drainage. Subsequently, he has had recurrence of these lesions involving his right axilla, chest, lower face, left thigh, and buttock region. He has had no fever, chills or sweats. He does scratch fair amount. 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 Lives in his own apartment. REVIEW OF SYSTEMS: Denies any cardiopulmonary, GI or complaints. Full 10-point review was negative other than what is described above. PAST MEDICAL HISTORY: HIV infection, coronary bypass grafting, previous skin and soft tissue abscesses, peripheral neuropathy, gastroesophageal reflux, cholecystectomy, previous [place]. FAMILY HISTORY: Noncontributory. SOCIAL HISTORY: Past smoker, no significant alcohol intake. No reported tuberculosis exposure. MEDICATIONS: Included aspirin, metoprolol, atorvastatin, sertraline, and Biktarvy which is now off for the last month. PHYSICAL EXAMINATION: VITAL SIGNS: He is afebrile and hemodynamically stable. GENERAL: He is alert and cooperative and pleasant, in no acute distress. He was of normal stature and weight. Mental status was normal. SKIN: With multiple skin lesions with eschar and fluctuance involving the right axilla, right anterior upper chest, right lower face, left buttock several lesions and left anterior thigh. [facility] [address] [place] [address] CONSULTATION Name: BUBBA ABURTO Room #: [address] [place] [address] [place] [facility].#: [id number] Admission: 05/15/19 Attend Phys: Kristopher Sandoval MD Discharge: 05/17/19 Date of : 66 Report #: [id number] EYES: Without scleral icterus. MOUTH: Without mucositis. NECK: Supple, no thyromegaly or mass. No palpable adenopathy. CHEST: Clear. HEART: Regular, without murmur. ABDOMEN: Soft and nontender with no hepatosplenomegaly or mass. EXTREMITIES: Without clubbing, cyanosis or edema. NEUROLOGIC: Cranial nerves intact. Strength in his upper and lower extremities was normal. Sensation intact in upper and lower extremities. Mood was normal. LABORATORY STUDIES: Sodium 139, potassium 3.9, bicarbonate 27, creatinine 1. Hemoglobin 13.6, white count 6.6, platelet count 178,000. Urinalysis 1+ protein. Liver function tests normal. Blood cultures are negative to date. IMPRESSION: 1. A 49-year-old human immunodeficiency virus infection, now off his antiretroviral program 2. Multiple furuncles consistent with methicillin-resistant Staphylococcus aureus, considering the patient has had this in the recent past. RECOMMENDATIONS: We will continue with Zyvox. This will be able to transition to oral therapy in the outpatient setting. No plans for incision and drainage from Surgery Service. Add mupirocin topically and begin Hibiclens showers. 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 <ELECTRONICALLY SIGNED> By: Omar Lua MD 06/15/19 [id number] Omar Lua MD /nt
== END 2019-05-17 15:06 | disposition home or self-care (01) | DRG 602 ==
LOC: ER 17:22 → 4W 19:37 → EROBS 19:37 → 4W 22:08
PROVIDERS: Emergency Medicine; Nurse Practitioner Family; ADMIT Family Medicine
PROC: 0HB8XZZ Excision of Buttock Skin, External Approach (ICD-10-PCS; principal; 2019-05-16)
DX: L03.317 Cellulitis of buttock (principal); E43 Unspecified severe protein-calorie malnutrition; L02.416 Cutaneous abscess of left lower limb; K21.9 Gastro-esophageal reflux disease without esophagitis; L02.31 Cutaneous abscess of buttock; G62.9 Polyneuropathy, unspecified; Z21 Asymptomatic human immunodeficiency virus [HIV] infection status; I25.10 Atherosclerotic heart disease of native coronary artery without angina pectoris; Z79.899 Other long term (current) drug therapy; Z86.14 Personal history of Methicillin resistant Staphylococcus aureus infection; Z95.1 Presence of aortocoronary bypass graft; Z87.891 Personal history of nicotine dependence; Z79.82 Long term (current) use of aspirin; Z68.21 Body mass index [BMI] 21.0-21.9, adult; Z90.49 Acquired absence of other specified parts of digestive tract; I25.2 Old myocardial infarction
CPT/HCPCS: 10040

== ENCOUNTER 2019-08-14 11:40 | Emergency (ER) | payer OTHER ==
[~2019-08-14] VITALS: Ht 182.9 cm; Wt 77.1 kg
[~2019-08-14 11:40] MED LIST changes: +HYDROCODON-ACE1 EAC7 PO; +LINEZOLID600 MG PO; +MUPIROCIN22 GM TOP
[2019-08-14] MEDS ORDERED: BIKTARVY 50-201 EACH PO (12:01)
[2019-08-14] MEDS ORDERED: LIPITOR80 MG PO (12:01)
[2019-08-14] MEDS ORDERED: METOPROLOL SUCC25 M1 PO (12:01)
[2019-08-14] MEDS ORDERED: ASA81BEC PO (12:02)
[2019-08-14 13:10] VITALS: BP 112/32
[2019-08-14] MEDS ORDERED: DOXYCYCLINE 10100 MG PO (13:11)
[2019-08-14] MEDS ORDERED: ZYRTEC10 MG PO (13:11)
== END 2019-08-14 13:10 | disposition home or self-care (01) ==
LOC: ER 11:40
DX: R21 Rash and other nonspecific skin eruption (principal); K21.9 Gastro-esophageal reflux disease without esophagitis; I25.2 Old myocardial infarction; G62.9 Polyneuropathy, unspecified; Z21 Asymptomatic human immunodeficiency virus [HIV] infection status

== ENCOUNTER 2020-04-23 10:01 | Emergency (ER) | payer OTHER ==
[~2020-04-23] VITALS: Ht 182.9 cm; Wt 81.7 kg
[~2020-04-23 10:01] MED LIST changes: +ASA81BEC PO; +DOXYCYCLINE 10100 MG PO; +METOPROLOL SUCC25 M1 PO
[2020-04-23] MEDS ORDERED: KEFLEX500 M1 PO (11:52)
[2020-04-23] MEDS ORDERED: NORCO 5-325 TA1 EAC2 PO (11:52)
[2020-04-23] MEDS ORDERED: BACTRIM DS TAB1 EACH PO (11:52)
[2020-04-23 12:17] VITALS: BP 138/89
== END 2020-04-23 12:17 | disposition home or self-care (01) ==
LOC: ER 10:01
DX: L02.212 Cutaneous abscess of back [any part, except buttock and flank] (principal); R25.1 Tremor, unspecified; B20 Human immunodeficiency virus [HIV] disease; K21.9 Gastro-esophageal reflux disease without esophagitis; I25.2 Old myocardial infarction; G62.9 Polyneuropathy, unspecified; Z90.49 Acquired absence of other specified parts of digestive tract; Z79.899 Other long term (current) drug therapy; Z79.2 Long term (current) use of antibiotics; Z79.82 Long term (current) use of aspirin